=== PATIENT | female | born 1950 | race Caucasian/White ===

== ENCOUNTER → 2018-03-03 | Outpatient (CLI) | payer OTHER | LOC: BMCIMAGING 14:40 | PROVIDERS: ATTEND Obstetrics & Gynecology | DX: Z13.820 Encounter for screening for osteoporosis (principal); M81.0 Age-related osteoporosis without current pathological fracture; K51.90 Ulcerative colitis, unspecified, without complications; Z78.0 Asymptomatic menopausal state ==

== ENCOUNTER → 2018-03-05 | Outpatient (CLI) | payer OTHER | LOC: FIMAGING 15:18 → MERGE 15:20 | PROVIDERS: ATTEND Obstetrics & Gynecology | DX: Z12.31 Encounter for screening mammogram for malignant neoplasm of breast (principal) ==

== ENCOUNTER 2018-05-02 05:47 | Inpatient (IN) | payer OTHER ==
--- NOTE | 2018-04-30 10:49 | GHP ---
[f rep st] PREOP HISTORY AND PHYSICAL DATE OF ADMISSION: 05/02/2018 Adriana is a 67-year-old female with a history of hepatitis C status post treatment, ulcerative colitis with ileostomy, who presents with a symptomatic parastomal hernia. This was further characterized on CT scan as a moderate-sized parastomal hernia containing nonobstructed small loops of bowel. She re ports feeling a bulge in her ostomy for several months. She is tolerating a regular diet and having normal bowel function. PAST MEDICAL HISTORY: Includes hepatitis C status post treatment, ulcerative colitis status post sub total colectomy, asthma, hypertension, mitral and tricuspid regurgitation. PAST SURGICAL HISTORY: Subtotal colectomy with ileostomy for ulcerative colitis. MEDICATIONS: Includes holistic supplements. ALLERGIES: No known drug allergies. FAMILY HISTORY: Includes abnormal heart rhythm and myocardial infarction. SOCIAL HISTORY: The patient does not drink alcohol. She does not use tobacco or caffeine. 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 REVIEW OF SYSTEMS: A 10-point review of systems is negative aside from that in the HPI. PHYSICAL EXAMINATION: GENERAL: A well-appearing, well-groomed 67-year-old female in no acute distre ss. HEENT: Normocephalic, atraumatic. CHEST: Clear to auscultation bilaterally. CARDIAC: Regula r rate and rhythm without murmurs. ABDOMEN: Soft, nontender and nondistended. Ileostomy is pink, i ntact with adequate profile and non-reducible bulge. SKIN: Warm and dry. PSYCH: Normal mood and a ffect. IMPRESSION: This is a 67-year-old female with a parastomal hernia around her ileostomy. PLAN: Plan is to proceed with an open parastomal hernia repair with possible use of mesh. Risks and options have been discussed and include, but are not limited to bleeding, infection, nerve injury, b owel injury, recurrence, damage to surrounding structures and other problems, and she requests to pro ceed. /[id number]/MODL
[2018-05-02] MEDS ORDERED: cefOXitin SODIUM 2 GM in NS 100 ML IV ONE (06:00)
[2018-05-02] MEDS ORDERED: LR 1,000 ML IV ONE (06:06)
[2018-05-02] MEDS ORDERED: BUPIVACAINE 0.5% 30 ML SDV ONE (06:31)
--- NOTE | 2018-05-02 07:05 | PDHPUP ---
History & Physical Update H&P update statement: This history and physical update is based on an assessment of the patient which was completed after admission or registration (within 24 hours), but prior to the surgery/procedure. H&P update: H&P reviewed & patient examined, no change in patient's condition since H&P completed
--- NOTE | 2018-05-02 07:08 | PDANEPAE ---
ANE History of Present Illness parastoma hernia ANE Past Medical History - Cardiovascular History Hx Hypertension: No Hx Arrhythmias: No Hx Chest Pain: No Hx Coronary Artery / Peripheral Vascular Disease: No Hx CHF / Valvular Disease: Yes Hx Palpitations: No Cardiovascular History Comment: mild MR, mild-mod TR on last echo (05/15/17) cardiac clearance note from [facility]- dr. 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 poor gastric absorbtion - Other Health History Other Health History: sinus congestion. mild glaucoma - Chronic Pain History Chronic Pain: Yes (lower back,sciatica) - Surgical History Prior Surgeries: egd 04/2018. none in last 5 yrs ANE Review of Systems Review of systems is: negative Review of Systems: - Exercise capacity Exercise capacity: >=4 METS METS (RN): 4 METS ANE Patient History - Allergies Allergies/Adverse Reactions: acetaminophen [From Vicodin] Allergy (Verified 05/02/18 06:09) Vomiting aspirin Allergy (Verified 05/02/18 06:09) Liver Problems hydrocodone [From Vicodin] Allergy (Verified 05/02/18 06:09) Vomiting ibuprofen [From Motrin IB] Allergy (Verified 05/02/18 06:09) Liver Problems tramadol Allergy (Verified 05/02/18 06:09) Vomiting food allergies Allergy (Uncoded 05/02/18 06:09) Other-Enter Comments - Home Medications Home medications: home medication list seen and reviewed Home Medications: Latanoprost 0.005% [Xalatan 0.005% (*)] 1 drops EACHEYE HS 04/21/18 [Last Taken 04/25/18] Multivitamins [Multivitamin (*)] 1 each PO DAILY 04/21/18 [Last Taken 04/25/18] RX: Herbals/Supplements -Info Only 1 ea PO DAILY 04/21/18 [Last Taken 04/25/18] - NPO status NPO Status: no food or drink >8 hours NPO Since - Liquids (Date): 05/01/18 NPO Since - Liquids (Time): 23:59 NPO Since - Solids (Date): 05/01/18 NPO Since - Solids (Time): 19:00 - Anes Hx Anes Hx: no prior problems - Smoking Hx Smoking Status: Never smoked - Family Anes Hx Family Hx Anesthesia Complications: none ANE Labs/Vital Signs - Vital Signs Vital Signs: reviewed preoperatively; see RN documention for details Blood Pressure: 124/97 Heart Rate: 82 Respiratory Rate: 16 O2 Sat (%): 93 Height: 152.4 cm Weight: 70.307 kg ANE Physical Exam - Airway Neck exam: FROM Mallampati Score: Class 2 Mouth exam: normal dental/mouth exam - Pulmonary Pulmonary: no respiratory distress, clear to auscultation - Cardiovascular Cardiovascular: regular rate and rhythym - ASA Status ASA Status: III ANE Anesthesia Plan Anesthesia Plan: general endotracheal anesthesia Regional Anesthesia: single shot NB, TAP block
[2018-05-02] MEDS ORDERED: fentaNYL 100 MCG/2 ML INJ ONE ×2 (07:14→08:45)
[2018-05-02] MEDS ORDERED: PROPOFOL/EMULSION 500 MG/50 ML BOTTLE IV ONE ×3 (07:14→08:51)
[2018-05-02] MEDS ORDERED: PROPOFOL 200 MG/20 ML VIAL ONE (07:14)
[2018-05-02] MEDS ORDERED: ROCURONIUM 50 MG/5 ML VIAL ONE ×2 (07:21→08:36)
[2018-05-02] MEDS ORDERED: ePHEDrine SULFATE 25 MG/5 ML SYR ONE (07:50)
[2018-05-02] MEDS ORDERED: PHENYLEPHRINE HCL 100 MCG/ML SYR ONE (07:51)
[2018-05-02] MEDS ORDERED: DEXAMETHASONE 4 MG/ML VIAL ONE (07:52)
[2018-05-02] MEDS ORDERED: ONDANSETRON 4 MG/2 ML VIAL ONE (07:53)
[2018-05-02] MEDS ORDERED: ROPIVACAINE HCL 150 MG/30 ML INJ ONE (08:22)
[2018-05-02] MEDS ORDERED: ALBUTEROL 3 ML DEYVIAL IH PRN (08:29)
[2018-05-02] MEDS ORDERED: LABETALOL HCL 5 MG/ML 20 ML MDV IVP PRN (08:29)
[2018-05-02] MEDS ORDERED: MEPERIDINE 25 MG/0.5 ML AMP IVP PRN (08:29)
[2018-05-02] MEDS ORDERED: LR 500 ML IV PRN (08:29)
[2018-05-02] MEDS ORDERED: fentaNYL 100 MCG/2 ML INJ IVP PRN (08:29)
[2018-05-02] MEDS ORDERED: ONDANSETRON 4 MG/2 ML VIAL IVP PRN ×2 (08:29→09:31)
[2018-05-02] MEDS ORDERED: PROMETHAZINE HCL 25 MG/ML INJ IVP PRN (08:29)
[2018-05-02] MEDS ORDERED: PHENYLEPHRINE HCL 100 MCG/ML SYR IVP PRN (08:29)
[2018-05-02] MEDS ORDERED: DEXAMETHASONE 4 MG/ML VIAL IVP PRN (08:29)
[2018-05-02] MEDS ORDERED: NALOXONE HCL 0.4 MG/ML INJ IVP PRN (08:29)
[2018-05-02] MEDS ORDERED: METOCLOPRAMIDE 10 MG/2 ML VIAL IVP PRN (08:29)
[2018-05-02] MEDS ORDERED: SUGAMMADEX SODIUM 200 MG/2 ML VIAL IVP ONE (08:59)
[2018-05-02] MEDS ORDERED: THROMBIN (BOVINE) 5,000 UNIT VIAL TP ONE (09:00)
[2018-05-02] MEDS ORDERED: HYDROmorphONE/DILAUDID 1 MG/ML INJ IVP PRN (09:29)
[2018-05-02] MEDS ORDERED: ONDANSETRON DISINTEGRATING 4 MG TAB PO PRN (09:31)
--- NOTE | 2018-05-02 09:35 | POSTOPPROG ---
Post Op Note Date of Operation: 05/02/18 Surgeon: Robert Felton Shift Boss: Kathy Anesthesiologist: Jos Anesthesia: GET(General Endotracheal) Pre-op Diagnosis: Parastomal hernia Post-op Diagnosis: same Indication: same Procedure: Open repair of parastomal hernia, CLAIRE Findings: Multiple adhesions, loops of bowel within hernia sac Inf/Abcess present in the surg proc area at time of surgery?: No Depth: Organ Space EBL: 50-100 Bowel Protocol: N/A Clean Closure Performed: N/A Drains: Devon Ca
[2018-05-02] MEDS ORDERED: NS 1,000 ML IV SCH (09:45)
[2018-05-02] MEDS ORDERED: HYDROmorphONE/DILAUDID 2 MG/ML INJ ONE (10:33)
[2018-05-02] MEDS: HYDROmorphONE/DILAUDID 2 MG/ML INJ IVP PRN ×2 (10:37→10:48)
--- NOTE | 2018-05-02 11:06 | POSTANESTH ---
Post Anesthetic Evaluation Cardiovascular Status: Normal, Stable Respiratory Status: Normal, Stable Level of Consciousness/Mental Status: Can Participate in Eval Pain Control: Adequate, Prn Tx Ordered Nausea/Vomiting Control: Adequate, Prn Tx Ordered Complications Possibly Related to Anesthesia: None Noted
[2018-05-02] MEDS: HYDROmorphONE/DILAUDID 2 MG TAB PO PRN ×2 (20:52→21:28)
[2018-05-03 06:12] LABS: PLATELET COUNT 172 10^3/uL (150-400)
--- NOTE | 2018-05-03 09:19 | SOAPPROG ---
SOAP Progress Note Assessment/Plan: Assessment: WOUND OK/ MINIMAL TACHO OUT/ AFEBRILE/ OSTOMY OK/ + OSTOMY OUTPUT Plan:ADVANCE DIET/ HOME IN AM 05/03/18 09:17 Objective: Vital Signs Temp Pulse Resp BP Pulse Ox 36.7 C 69 1 L 131/80 H 92 05/03/18 07:27 05/03/18 07:27 05/03/18 07:27 05/03/18 07:27 05/03/18 07:27 Laboratory Results 05/03/18 06:08 05/02/18 05/03/18 05/04/18 05:59 05:59 05:59 Intake Total 1750 Output Total 1130 Balance 620 ICD10 Worksheet Patient Problems: Problems Problem Status Onset INCARCERATED PARASTOMAL HERNIA Acute
--- NOTE | 2018-05-03 09:42 | PDMN ---
Medical Necessity Medical necessity: Pt meets IP criteria per [employer]SYCHOLOG[employer] & MCG S-1305; est los >2 mn s/p open parastomal hernia repair (cpt 34137) with 7/10 pain; admit for further monitoring, advancement of diet as tolerated & pain management; hx ulcerative colitis w/ileostomy; per order & H&P 05/02/18
[2018-05-03] MEDS: HYDROmorphONE/DILAUDID 2 MG TAB PO PRN ×2 (10:24→16:38)
--- NOTE | 2018-05-03 12:22 | ASMTCMCOM ---
CM Note CM Note Notes: Pt is s/p a planned hernia repair with ostomy. Anticipate d/c with no CM needs when medically cleared, likely tomorrow. Date Signed: 05/03/2018 12:22 PM Electronically Signed By:ALTHEA Banegas
--- NOTE | 2018-05-03 20:50 | GOP ---
[f rep st] OPERATIVE REPORT DATE OF OPERATION: 05/02/2018 SURGEON: Robert Felton MD ALARM MECHANIC: Nicky Marquez, nurse practitioner. ANESTHESIOLOGIST: Dr. Lambert. PREOPERATIVE DIAGNOSIS: Incarcerated peristomal hernia. POSTOPERATIVE DIAGNOSIS: Incarcerated peristomal hernia. PROCEDURE PERFORMED: Open repair of incarcerated peristomal hernia. FINDINGS: Patient was found to have a 5 cm defect in the peristomal hernia with incarcerated small b owel. The stoma itself appeared to be quite viable and intact. ESTIMATED BLOOD LOSS: Blood loss from the procedure was less than 25 cc. DESCRIPTION OF PROCEDURE: The patient was taken to the operating room where she received satisfactor y general endotracheal anesthesia by Dr. Lambert. She was placed in a supine position, prepped and draped in the usual sterile fashion. A circular incision was made around the stoma somewhat distant from the stoma. Dissection was carried carefully down through the subcutaneous tissue down to the fa scia. The fascial edges of the hernia defect were carefully dissected free and exposed circumferenti ally around the entire stoma. The stoma was identified by the Wood catheter balloon in the loop of the terminal ileum. The remaining small bowel was carefully dissected free from its attachments to t he stoma and from the attachments in the hernia defect until they could be reduced back into the abdo men. The defect was then closed with interrupted #1 PDS [id number] sutures making a snug closur e around the residual ileostomy stoma. A second layer was used for #1 PDS suture to imbricate a seco nd layer over the initial closure in a running manner. The wound was then infiltrated with 0.5% Yamil sky. Subcu was closed with 3-0 Vicryl. The skin was closed with 3-0 Monocryl subcuticular stitch. A 15 round silicone TACHO drain had been brought out through a separate stab incision, secured to skin with a nylon suture. The wound was dressed with Dermabond and then eventually an appliance was appli ed. She tolerated the procedure well. COMPLICATIONS: There were no complications. /[id number]/MODL
[2018-05-04] MEDS: HYDROmorphONE/DILAUDID 2 MG TAB PO PRN (03:14)
--- NOTE | 2018-05-04 08:21 | SOAPPROG ---
SOAP Progress Note Assessment/Plan: Assessment: WOUND OK/ MINIMAL TACHO OUT/ AFEBRILE/ OSTOMY OK/ + OSTOMY OUTPUT Plan:ADVANCE DIET/ HOME IN AM 05/03/18 09:17 05/04/18 08:20 afebrile/ vs ok/ still some pain/ ostomy working/ eating ok/ home tomorrow Objective: Vital Signs Temp Pulse Resp BP Pulse Ox 36.8 C 76 18 146/80 H 92 05/04/18 03:26 05/04/18 03:26 05/04/18 03:26 05/04/18 03:26 05/04/18 03:26 Laboratory Results 05/03/18 06:08 05/03/18 05/04/18 05/05/18 05:59 05:59 05:59 Intake Total 1750 500 Output Total 1130 1205 Balance 119 -485 ICD10 Worksheet Patient Problems: Problems Problem Status Onset INCARCERATED PARASTOMAL HERNIA Acute
--- NOTE | 2018-05-05 08:28 | SOAPPROG ---
SOAP Progress Note Assessment/Plan: Assessment/Plan: 67 Y F s/p parastomal hernia repair. POD#3. Doing well. Pain controlled. Advance diet. Patient comfortable with ostomy care. D/c to home--will be with a friend. Patient declining home nursing. F/u Saturday for likely drain removal. S: ready to go home. O: alert, nad ncat, mmm ctab rrr abd soft, ostomy intact, hernia repair intact. 05/05/18 08:24 Objective: Vital Signs Temp Pulse Resp BP Pulse Ox 36.6 C 77 16 148/102 H 90 L 05/05/18 07:17 05/05/18 07:17 05/05/18 07:17 05/05/18 07:17 05/05/18 07:17 Laboratory Results 05/03/18 06:08 05/04/18 05/05/18 05/06/18 05:59 05:59 05:59 Intake Total 500 250 Output Total 3022 692 Balance -915 -731 ICD10 Worksheet Patient Problems: Problems Problem Status Onset INCARCERATED PARASTOMAL HERNIA Acute
--- NOTE | 2018-05-05 09:29 | ASMTDCNOTE ---
Case Management Discharge Discharge Order Complete? Answers: Yes Patient to Obtain Answers: Independently Medications Transportation Arranged Answers: Family/Friends Transport will Pick (Date 05/05/2018 12:00 AM & Time) Discharge Comments Notes: CM met with patient. Patient is being discharging independently today. Patient is comfortable with this plan. Family is transporting. No CM needs at this time. Date Signed: 05/05/2018 09:28 AM Electronically Signed By:Lyn Ramos
--- NOTE | 2018-05-05 09:32 | ASMTLACE ---
EARLENE Length of stay for Answers: 3 days current admission Acuity / Level of Answers: Yes Care: Did the patient have an inpatient admission? Comorbidities - select Answers: Congestive heart failure all that apply Opioid dependence / Chronic pain Other Notes: Hep C; HTN # of Emergency department Answers: 0 visits in the last 6 months Social determinants Answers: Mental health diagnosis (anxiety, depression, pers onality disorders, etc.) Score: 16 Date Signed: 05/05/2018 09:31 AM Electronically Signed By:Lyn Ramos
--- NOTE | 2018-05-05 09:58 | ASDISCHSUM ---
Discharge Information Plan Status:Home with No Needs Medically Cleared to Leave:05/05/2018 Discharge Date:05/05/2018 CM D/C Disposition:Home, Routine, Self-Care ADT D/C Disposition:Home, Routine, Self-Care Projected Discharge Date:05/05/2018 Transportation at D/C:Family Discharge Delay Reason: Follow-Up Date:05/05/2018 Discharge Slot: Final Diagnosis:parastomal hernia Placement Information Patient Contact Information Contact Name:LANCE Relationship:Kacey Address: Work Phone: City: [facility] Phone: State/[employer] Code: Email: Financial Information Financial Class:Medicare Primary Plan Desc:MEDICARE INPATIENT Primary Plan Number:[id number] Secondary Plan Desc:PH[employer]IC[employer] TRAIL Secondary Plan Number:[id number] Assessment Information LACE LACE Length of stay for Answers: 3 days current admission Acuity / Level of Answers: Yes Care: Did the patient have an inpatient admission? Comorbidities - select Answers: Congestive heart failure all that apply Opioid dependence / Chronic pain Other Notes: Hep C; HTN # of Emergency department Answers: 0 visits in the last 6 months Social determinants Answers: Mental health diagnosis (anxiety, depression, pers onality disorders, etc.) Score: 16 Date Signed: 05/05/2018 09:31 AM Electronically Signed By:Lyn Ramos [facility] CM Progress Note CM Note CM Note Notes: Pt is s/p a planned hernia repair with ostomy. Anticipate d/c with no CM needs when medically cleared, likely tomorrow. Date Signed: 05/03/2018 12:22 PM Electronically Signed By:ALTHEA Banegas Case Management Discharge Plan Note Case Management Discharge Discharge Order Complete? Answers: Yes Patient to Obtain Answers: Independently Medications Transportation Arranged Answers: Family/Friends Transport will Pick (Date 05/05/2018 12:00 AM & Time) Discharge Comments Notes: CM met with patient. Patient is being discharging independently today. Patient is comfortable with this plan. Family is transporting. No CM needs at this time. 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
[2018-05-05 11:53] VITALS: BP 158/98
== END 2018-05-05 12:30 | disposition home or self-care (01) | DRG 354 ==
LOC: F3N 05:47 → OBSVTOIN 09:28 → F3E 10:22
PROVIDERS: ADMIT Surgery; ATTEND Surgery
PROC: 0WQF0ZZ Repair Abdominal Wall, Open Approach (ICD-10-PCS; principal; 2018-05-02 07:15)
DX: K43.5 Parastomal hernia without obstruction or gangrene (principal); K51.90 Ulcerative colitis, unspecified, without complications; Z93.2 Ileostomy status; K74.60 Unspecified cirrhosis of liver; I34.0 Nonrheumatic mitral (valve) insufficiency; I36.1 Nonrheumatic tricuspid (valve) insufficiency; J45.909 Unspecified asthma, uncomplicated; K21.9 Gastro-esophageal reflux disease without esophagitis; H40.9 Unspecified glaucoma; G89.29 Other chronic pain
CPT/HCPCS: J0694; J1100; J1170; J2370; J2405; J2704; J2795; J3010

== ENCOUNTER 2018-06-03 10:14 | Inpatient (IN) | payer OTHER ==
--- NOTE | 2018-06-02 10:48 | GHP ---
[f rep st] PREOP HISTORY AND PHYSICAL DATE OF ADMISSION: 06/03/2018 CHIEF COMPLAINT: Ileostomy retraction. HISTORY OF PRESENT ILLNESS: Adriana is a 67-year-old female status post parastomal hernia repair on 05/02/2018. Since surgery, she has struggled with fitting her ileostomy appliance over her ileostomy. She reports that it continues to leak, and is causing itching and pain. She also has a superficial dehiscence in the inferior aspect of her incision. She has been undergoing routine local wound care. She is tolerating regular diet. She denies fever and chills. PAST MEDICAL HISTORY: Asthma, hepatitis C, hypertension, mitral regurgitation, tricuspid regurgitation, ulcerative colitis. PAST SURGICAL HISTORY: Ileostomy 30 years ago, parastomal hernia repair. MEDICATIONS: Supplements. ALLERGIES: No known drug allergies. FAMILY HISTORY: Myocardial infarction in her maternal grandmother. SOCIAL HISTORY: This patient is a nonsmoker. She does not drink alcohol or caffeine. REVIEW OF SYSTEMS: Ten-point review of systems is negative, aside from what is in the HPI. PHYSICAL EXAM: GENERAL: This is a well-appearing and well-dressed 67-year-old female in no acute distress. HEENT: Normocephalic, atraumatic. No gross hearing deficits. Mucous membranes moist, PERRLA. CARDIAC: Regular rate and rhythm, no clicks, murmurs or rubs. CHEST: Clear to auscultation bilaterally, no wheezes, rhonchi or rales. ABDOMEN: Soft, nontender, nondistended. Ileostomy appears retracted with multiple granulomas surrounding it. There is local skin irritation present around the ileostomy. Her incision appears intact , with exception of the inferior-most aspect that is superficially dehisced. There is no surrounding erythema, warmth or induration. No drainage or malodor. IMPRESSION AND PLAN: This is a 67-year-old female with a history of ulcerative colitis who has had an ileostomy for the last 30 years. Most recently, she underwent parastomal hernia repair approximately 1 month ago. Since then, she has had multiple issues with her ileostomy leaking. She has to change her appliance multiple times per day. We have discussed all risks and options. Risks of surgery include, but are not limited to infection, bleeding, damage to surrounding structures, including bowel and nerves, heart attack, and . Patient understands and wishes to proceed. We will proceed with open revision of ileostomy. /[id number]/MODL MTDD
[~2018-06-03 10:14] MED LIST: BUPIVACAINE 0.5% 30 ML SDV ONE; cefOXitin SODIUM 2 GM in NS 100 ML IV ONE
[2018-06-03] MEDS ORDERED: LR 1,000 ML IV ONE (10:22)
[2018-06-03 11:07] LABS: PLATELET COUNT 224 10^3/uL (150-400)
[2018-06-03] MEDS ORDERED: PROPOFOL/EMULSION 500 MG/50 ML BOTTLE IV ONE ×3 (11:07→12:49)
[2018-06-03] MEDS ORDERED: fentaNYL 100 MCG/2 ML INJ ONE ×3 (11:07→14:35)
[2018-06-03] MEDS ORDERED: PROPOFOL 200 MG/20 ML VIAL ONE (11:07)
--- NOTE | 2018-06-03 11:10 | PDANEPAE ---
ANE History of Present Illness stoma leak ANE Past Medical History - Cardiovascular History Hx Hypertension: No Hx Arrhythmias: No Hx Chest Pain: No Hx Coronary Artery / Peripheral Vascular Disease: No Hx CHF / Valvular Disease: Yes Hx Palpitations: No Cardiovascular History Comment: mild MR, mild-mod TR on last echo (05/15/17) cardiac clearance note from [facility]- dr. rose 04/22/18 - Pulmonary History Hx COPD: No Hx Asthma/Reactive Airway Disease: Yes Hx Recent Upper Respiratory Infection: No Hx Oxygen in Use at Home: No Hx Sleep Apnea: No Sleep Apnea Screening Result - Last Documented: Negative Pulmonary History Comment: asthma - Neurologic History Hx Cerebrovascular Accident: No Hx Seizures: No Hx Dementia: No - Endocrine History Hx Diabetes: No - Renal History Hx Renal Disorders: No - Liver History Hx Hepatic Disorders: Yes Hepatic History Comment: cirrhosis with portal HTN - Neurological & Psychiatric Hx Hx Neurological and Psychiatric Disorders: Yes Neurological / Psychiatric History Comment: anxiety - Cancer History Hx Cancer: No - Congenital Disorder History Hx Congenital Disorders: No - GI History Hx Gastrointestinal Disorders: Yes Gastrointestinal History Comment: acid reflux,ulcerative collitis. poor gastric absorbtion - Other Health History Other Health History: sinus congestion. mild glaucoma - Chronic Pain History Chronic Pain: Yes (lower back,sciatica) - Surgical History Prior Surgeries: 05/02/18 open parastomal hernia repair with Jose Francisco. egd 2018. none in last 5 yrs ANE Review of Systems Review of systems is: negative Review of Systems: - Exercise capacity Exercise capacity: >=4 METS METS (RN): 4 METS ANE Patient History - Allergies Allergies/Adverse Reactions: acetaminophen [From Vicodin] Allergy (Verified 05/30/18 16:23) causes issues with liver tramadol Allergy (Verified 05/30/18 16:23) makes me feel funky food allergies Allergy (Uncoded 05/30/18 16:23) Other-Enter Comments - Home Medications Home medications: home medication list seen and reviewed Home Medications: Herbals/Supplements -Info Only 1 ea PO DAILY 04/21/18 [Last Taken 1 Week Ago ~] Latanoprost 0.005% [Xalatan 0.005% (*)] 1 drops EACHEYE HS 04/21/18 [Last Taken 1 Day Ago ~06/02/18] Multivitamins [Multivitamin (*)] 1 each PO DAILY 04/21/18 [Last Taken 1 Week Ago ~05/27/18] - NPO status NPO Status: no food or drink >8 hours NPO Since - Liquids (Date): 06/03/18 NPO Since - Liquids (Time): 08:00 NPO Since - Solids (Date): 06/02/18 NPO Since - Solids (Time): 13:30 - Anes Hx Anes Hx: no prior problems - Smoking Hx Smoking Status: Never smoked - Family Anes Hx Family Hx Anesthesia Complications: none ANE Labs/Vital Signs - Labs Result Diagrams: 06/03/18 10:56 - Vital Signs Vital Signs: reviewed preoperatively; see RN documention for details Blood Pressure: 137/73 Heart Rate: 74 Respiratory Rate: 19 O2 Sat (%): 98 Height: 152.4 cm Weight: 70.307 kg ANE Physical Exam - Airway Neck exam: FROM Mallampati Score: Class 2 Mouth exam: normal dental/mouth exam - Pulmonary Pulmonary: no respiratory distress - Cardiovascular Cardiovascular: regular rate and rhythym - ASA Status ASA Status: III ANE Anesthesia Plan Anesthesia Plan: general endotracheal anesthesia Regional Anesthesia: single shot NB, TAP block
[2018-06-03] MEDS ORDERED: ROCURONIUM 50 MG/5 ML VIAL ONE ×2 (11:11→12:36)
[2018-06-03] MEDS ORDERED: DEXAMETHASONE 4 MG/ML VIAL ONE (12:36)
[2018-06-03] MEDS ORDERED: ONDANSETRON 4 MG/2 ML VIAL ONE (12:36)
[2018-06-03] MEDS ORDERED: ROPIVACAINE HCL 150 MG/30 ML INJ ONE (13:10)
[2018-06-03] MEDS ORDERED: METOCLOPRAMIDE 10 MG/2 ML VIAL IVP PRN (13:14)
[2018-06-03] MEDS ORDERED: PHENYLEPHRINE HCL 100 MCG/ML SYR IVP PRN (13:14)
[2018-06-03] MEDS ORDERED: NALOXONE HCL 0.4 MG/ML INJ IVP PRN (13:14)
[2018-06-03] MEDS ORDERED: DEXAMETHASONE 4 MG/ML VIAL IVP PRN (13:14)
[2018-06-03] MEDS ORDERED: ONDANSETRON 4 MG/2 ML VIAL IVP PRN ×2 (13:14→13:36)
[2018-06-03] MEDS ORDERED: PROMETHAZINE HCL 25 MG/ML INJ IVP PRN (13:14)
[2018-06-03] MEDS ORDERED: fentaNYL 100 MCG/2 ML INJ IVP PRN (13:14)
[2018-06-03] MEDS ORDERED: HYDROmorphONE/DILAUDID 1 MG/ML INJ IVP PRN ×2 (13:14→13:36)
[2018-06-03] MEDS ORDERED: LABETALOL HCL 5 MG/ML 20 ML MDV IVP PRN (13:14)
[2018-06-03] MEDS ORDERED: MEPERIDINE 25 MG/0.5 ML AMP IVP PRN (13:14)
[2018-06-03] MEDS ORDERED: ALBUTEROL 3 ML DEYVIAL IH PRN (13:14)
[2018-06-03] MEDS ORDERED: HYDROmorphONE/DILAUDID 2 MG TAB PO PRN (13:37)
[2018-06-03] MEDS ORDERED: HYDROmorphONE/DILAUDID 1 MG/ML INJ ONE (14:35)
[2018-06-03] MEDS: NS 1,000 ML IV SCH (15:40)
[2018-06-03] MEDS: cefOXitin SODIUM 1 GM in NS 50 ML IV SCH ×2 (17:50→23:24)
--- NOTE | 2018-06-03 19:11 | SOAPPROG ---
SOAP Progress Note Assessment/Plan: Assessment/Plan: 67 Y F s/p ileostomy revision. POD#0. Doing well. Wounds intact. Minimal pain. Clears. Continue routine post op care. Dispo: pending. Likely . 06/03/18 19:10 Objective: Vital Signs Temp Pulse Resp BP Pulse Ox 36.5 C 64 15 152/84 H 99 06/03/18 17:25 06/03/18 17:25 06/03/18 17:25 06/03/18 17:25 06/03/18 17:25 Laboratory Results 06/03/18 10:56 06/02/18 06/03/18 06/04/18 05:59 05:59 05:59 Intake Total 1600 Output Total 700 Balance 900 ICD10 Worksheet Patient Problems: Problems Problem Status Onset INCARCERATED PARASTOMAL HERNIA Acute
--- NOTE | 2018-06-03 19:17 | POSTOPPROG ---
Post Op Note Date of Operation: 06/03/18 Surgeon: Robert Felton Care Advocate: Lacy Garza Anesthesiologist: TACHO Lambert Anesthesia: GET(General Endotracheal) Pre-op Diagnosis: retracted ileostomy after parastomal hernia repair Post-op Diagnosis: same Procedure: ileostomy revision c sbr Findings: ileostomy readily brought to surface, good protrusion, viable bowel Inf/Abcess present in the surg proc area at time of surgery?: No EBL: Minimal Complications: none Bowel Protocol: N/A Clean Closure Performed: N/A Specimen(s): to path
[2018-06-03] MEDS: LATANOPROST 0.005% 2.5 ML OPHT DROPS EACHEYE SCH (20:56)
--- NOTE | 2018-06-03 23:54 | GOP ---
[f rep st] OPERATIVE REPORT DATE OF OPERATION: 06/03/2018 SURGEON: Robert Felton MD LEASE PURCHASE DRIVER: ANILA Low. ANESTHESIOLOGIST: Dr. Lambert. PREOPERATIVE DIAGNOSIS: Chronic ileostomy with retraction and stricture. POSTOPERATIVE DIAGNOSIS: Chronic ileostomy with retraction and stricture. PROCEDURE PERFORMED: Ileostomy revision. FINDINGS: VIABLE ADEQUATE LENGTH OF TERMINAL ILEUM FOR NEW STOMA CREATION DESCRIPTION OF PROCEDURE: The patient was taken to the operating room where she received a satisfactory general endotracheal anesthesia by Dr. Lambert. She was placed in supine position prepped and draped in the usual sterile fashion. A circular incision was made around the ostomy at the skin level. Dissection carried down through the subcutaneous tissue with electrocautery. This was quite difficult because of the recent incarcerated hernia surgery with a marked amount of fat necrosis and inflammation in the subcutaneous tissue in the mesentery around the ileostomy limb. The dissection extended down to the fascia which was then opened and the entire ileostomy segment could be freed up. It was brought up out of the abdomen and extended for as much as necessary. The distal portion had been involved with the skin, and the stricture was excised using the Harmonic Scalpel. The new ileostomy limb was secured to the fascia with interrupted 3-0 Vicryl sutures, then brought up through the skin service. The subcu had been approximated with 3-0 Vicryl. It should be noted the fascia was reapproximated also with #1 PDS [id number] suture. The ileostomy was then turned into a 2 cm circle by everting the distal portion of the ileostomy. It was secured to the skin and to the ileum and into the ileal mucosa with interrupted 3-0 Vicryl sutures around the circumference of the ileostomy. Hemostasis was assured. The wound was irrigated. The ileostomy was then dressed with an ileostomy appliance, and the wounds were covered with derma dewitt. She tolerated the procedure well. She was taken to the recovery room in good condition. The wound was infiltrated with 0.5% Marcaine. Blood loss was negligible. There were no complications. /[id number]/MODL MTDD
[2018-06-04] MEDS: cefOXitin SODIUM 1 GM in NS 50 ML IV SCH ×3 (05:52→18:02)
--- NOTE | 2018-06-04 09:12 | SOAPPROG ---
SOAP Progress Note Assessment/Plan: Assessment/Plan: 67 Y F s/p ileostomy revision. POD#1. Stoma is dark. Hopefully just superficial, but some concern for ischemia. D/w' ed Dr. Felton and wound care who will both see patient today. Continue clears. Continue pain control. VTE ppx tomorrow. Ambulate today. Dispo: patient motivated for d/c tomorrow. Pending. S: minimal pain. wants to walk. had some sugar free jello. O: alert, nad ctab rrr abd soft ostomy dark, dark scan sanguinous drainage 06/04/18 09:10 Objective: Vital Signs Temp Pulse Resp BP Pulse Ox 36.8 C 66 16 110/57 L 95 06/04/18 07:19 06/04/18 07:19 06/04/18 07:19 06/04/18 07:19 06/04/18 07:19 Laboratory Results 06/04/18 05:20 06/04/18 05:20 06/03/18 06/04/18 06/05/18 05:59 05:59 05:59 Intake Total 1900 Output Total 1025 Balance 875 ICD10 Worksheet Patient Problems: Problems Problem Status Onset INCARCERATED PARASTOMAL HERNIA Acute
--- NOTE | 2018-06-04 11:38 | ASMTCMCOM ---
CM Note CM Note Notes: Pt had ileostomy revision, pt reports she may need another surgery this hospitalization. Pt was just at [facility] and d/c 05/02 independent. Pt has routine wound care at [facility] outpatient and wound care ordered to consult this hospitalization. Pt resides alone, reports she will have a friend who is an RN be able to stay with her at d/c intermittently. Pt reports she may need HHC and it is too early now to know. Pt has never had skilled home care and resides in [place]. No therapies ordered. CM to follow. D/c plan of care: Independent vs home health RN Date Signed: 06/04/2018 11:38 AM Electronically Signed By:ALTHEA Bowen
--- NOTE | 2018-06-04 15:05 | WOCRNPDOC ---
PAVEL Advanced Assessment Note - Ileostomy Assessment, Advanced Right Abdomen Ileostomy Ileostomy Appliance Intact: No Ileostomy Appliance Currently in Use: Two Piece Flat, 2 1/4, Cut to Fit Stoma Color: Purple Stoma Turgor: Taught Stoma Shape: Round Stoma Height: Protruding Ileostomy Effluent: Serosangenous (transitional) Ileostomy Size - Head-to-Toe Length X Width X Depth (cm): 38 Ileostomy Details: End Ileostomy Comment/Treatment Details: Ostomy revision yesterday. Pouch in place is 2 1/4 convatec cut to fit. This is leaking from the bottom. There is a fresh 2cm surgical wound at 12 oclock that is approximately 0.4 cm deep. There is also a small dime sized very shallow wound at 7 oclock about 4 cm away from stoma that has no drainage. Stoma is mushroomed and although the opening measures to 38 mm the stoma "top" is closer to 44 mm. Patient is tearful and has her friend Lidia in the room. Patient was very concerned about the appliance being too small, about the wound at 7 oclock dehiscing and about the possiblity that she may have to go back to surgery. A two piece flat sensura flex appliance 2 3/4 was chosen and placed which patient liked. A pea sized amount of brava paste applied to 9 oclock as there was a slight divit in the skin there. Hemlock catalogue with sensura jose cruz 2 piece wafer and pouch demarkated for ordering was supplied along with day one teaching packet. [place] BANSAL in room.
--- NOTE | 2018-06-04 16:40 | PDMN ---
Medical Necessity Medical necessity: [facility] IP only surgery; cpt 29863 Ileostomy Revision
[2018-06-04] MEDS: LATANOPROST 0.005% 2.5 ML OPHT DROPS EACHEYE SCH (21:20)
[2018-06-04] MEDS: KETOROLAC 15 MG/1 ML SDV IVP PRN (23:29)
[2018-06-04] MEDS: MELATONIN 3 MG TAB PO SCH (23:29)
[2018-06-05] MEDS ORDERED: ENOXAPARIN 40 MG/0.4 ML SYR SC SCH (09:00)
--- NOTE | 2018-06-05 10:25 | SOAPPROG ---
SOAP Progress Note Assessment/Plan: Assessment/plan: 67 Y F s/p ileostomy revision. POD#2 Stoma continues to be dark. If not improved by tomorrow, will plan on taking her to surgery for further revision. NPO at midnight. Continue pain control. VTE ppx: hold for possible surgery tomorrow. Continue to ambulate. Dispo: continue inpt status. S: Tolerating orals. Having bowel function. O: Alert Afebrile RRR No increased WOB Abdomen: soft, diffusely tender throughout abdomen. Ostomy appears dark. Dark serosang drainage in appliance. 06/05/18 10:11 Objective: Vital Signs Temp Pulse Resp BP Pulse Ox 37.0 C 80 16 129/78 H 88 L 06/05/18 08:00 06/05/18 08:00 06/05/18 08:00 06/05/18 08:00 06/05/18 08:00 Laboratory Results 06/04/18 05:20 06/04/18 05:20 06/04/18 06/05/18 06/06/18 05:59 05:59 05:59 Intake Total 1900 Output Total 1028 2250 250 Balance 875 -2250 -250 ICD10 Worksheet Patient Problems: Problems Problem Status Onset INCARCERATED PARASTOMAL HERNIA Acute
[2018-06-05] MEDS: MELATONIN 3 MG TAB PO SCH (21:53)
[2018-06-05] MEDS: LATANOPROST 0.005% 2.5 ML OPHT DROPS EACHEYE SCH (21:53)
--- NOTE | 2018-06-05 22:33 | SOAPPROG ---
MAGNUS Progress Note Assessment/Plan: Assessment: stoma improved and much pinker tonite/ check in am/ hopefully could avoid revision Plan:possible stoma revision in am 06/05/18 22:32 Objective: Vital Signs Temp Pulse Resp BP Pulse Ox 36.6 C 77 16 129/69 H 94 06/05/18 19:36 06/05/18 19:36 06/05/18 19:36 06/05/18 19:36 06/05/18 19:36 Laboratory Results 06/04/18 05:20 06/04/18 05:20 06/04/18 06/05/18 06/06/18 05:59 05:59 05:59 Intake Total 1900 500 Output Total 1025 2250 450 Balance 875 -2250 50 ICD10 Worksheet Patient Problems: Problems Problem Status Onset INCARCERATED PARASTOMAL HERNIA Acute
[2018-06-06] MEDS ORDERED: cefOXitin SODIUM 2 GM in NS 100 ML IV ONE (14:00)
[2018-06-06] MEDS: LATANOPROST 0.005% 2.5 ML OPHT DROPS EACHEYE SCH (22:59)
[2018-06-06] MEDS: MELATONIN 3 MG TAB PO SCH (22:59)
[2018-06-07] MEDS: NS 1,000 ML IV SCH (13:00)
--- NOTE | 2018-06-07 13:17 | SOAPPROG ---
MAGNUS Progress Note Assessment/Plan: Assessment: stoma improved and much pinker tonite/ check in am/ hopefully could avoid revision Plan:possible stoma revision in am 06/05/18 22:32 06/07/18 13:16 AFEBRILE/COMFORTABLE/VITAL SIGNS STABLE OSTOMY JUVENTINO STILL LOOKS DUSKY TO ME ALTHOUGH IT IS FUNCTIONING WELL PLAN IS TO PROCEED WITH THE OSTOMY REVISION TODAY/RISKS AND OPTIONS FULLY DISCUSSED AND SHE WISHED TO PROCEED HEENT NONICTERIC/CHEST CLEAR/COR REGULAR RHYTHM/ABDOMEN SOFT WITH RIGHT LOWER QUADRANT ILEOSTOMY Objective: Vital Signs Temp Pulse Resp BP Pulse Ox 37.1 C 74 16 149/79 H 93 06/07/18 08:00 06/07/18 08:00 06/07/18 08:00 06/07/18 08:00 06/07/18 08:00 Laboratory Results 06/04/18 05:20 06/04/18 05:20 06/06/18 06/07/18 06/08/18 05:59 05:59 05:59 Intake Total 800 Output Total 850 1475 Balance -50 -1473 ICD10 Worksheet Patient Problems: Problems Problem Status Onset INCARCERATED PARASTOMAL HERNIA Acute
[2018-06-07] MEDS ORDERED: NS 1,000 ML IV SCH (13:30)
[2018-06-07] MEDS ORDERED: cefOXitin SODIUM 2 GM in NS 100 ML IV ONE (14:00)
--- NOTE | 2018-06-07 16:31 | ASMTCMCOM ---
CM Note CM Note Notes: Pt will have ostomy revision, unclear if needs home health RN. States will have a friend who is a nurse stay with her intermittantly. Pt is normally independent, no therapies ordered. DC Plan: Independent vs RN Date Signed: 06/07/2018 04:30 PM Electronically Signed By:Khushbu Singletary RN
--- NOTE | 2018-06-07 18:57 | PDANEPAE ---
ANE History of Present Illness revision of stoma ANE Past Medical History - Cardiovascular History Hx Hypertension: No Hx Arrhythmias: No Hx Chest Pain: No Hx Coronary Artery / Peripheral Vascular Disease: No Hx CHF / Valvular Disease: Yes Hx Palpitations: No Cardiovascular History Comment: mild MR, mild-mod TR on last echo (05/15/17) cardiac clearance note from [facility]- dr. 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 poor gastric absorbtion - Other Health History Other Health History: sinus congestion. mild glaucoma - Chronic Pain History Chronic Pain: Yes (lower back,sciatica) - Surgical History Prior Surgeries: 05/02/18 open parastomal hernia repair with Felton. egd 2018. none in last 5 yrs ANE Review of Systems Review of Systems: - Exercise capacity METS (RN): 4 METS ANE Patient History - Allergies Allergies/Adverse Reactions: acetaminophen [From Vicodin] Allergy (Verified 05/30/18 16:23) causes issues with liver tramadol Allergy (Verified 05/30/18 16:23) makes me feel funky adhesive from arthur ostomy appl Allergy (Uncoded 06/07/18 13:02) food allergies Allergy (Uncoded 05/30/18 16:23) Other-Enter Comments - Home Medications Home Medications: Herbals/Supplements -Info Only 1 ea PO DAILY 04/21/18 [Last Taken 1 Week Ago ~] Latanoprost 0.005% [Xalatan 0.005% (*)] 1 drops EACHEYE HS 04/21/18 [Last Taken 1 Day Ago ~06/02/18] Multivitamins [Multivitamin (*)] 1 each PO DAILY 04/21/18 [Last Taken 1 Week Ago ~05/27/18] - NPO status NPO Since - Liquids (Date): 06/07/18 NPO Since - Liquids (Time): 06:00 NPO Since - Solids (Date): 06/06/18 NPO Since - Solids (Time): 20:00 - Smoking Hx Smoking Status: Never smoked - Alcohol Use Alcohol Use: None - Family Anes Hx Family Anes Hx: none Family Hx Anesthesia Complications: none ANE Labs/Vital Signs - Labs Result Diagrams: 06/04/18 05:20 06/04/18 05:20 - Vital Signs Blood Pressure: 134/84 Heart Rate: 78 Respiratory Rate: 16 O2 Sat (%): 92 Height: 152.4 cm Weight: 70.307 kg ANE Physical Exam - Airway Neck exam: FROM Mallampati Score: Class 1 - Pulmonary Pulmonary: clear to auscultation - Cardiovascular Cardiovascular: regular rate and rhythym - ASA Status ASA Status: III ANE Anesthesia Plan Anesthesia Plan: general endotracheal anesthesia Total IV Anesthesia: Yes
[2018-06-07] MEDS ORDERED: fentaNYL 100 MCG/2 ML INJ ONE ×3 (19:10→20:45)
[2018-06-07] MEDS ORDERED: ROCURONIUM 50 MG/5 ML VIAL ONE (19:10)
[2018-06-07] MEDS ORDERED: DEXAMETHASONE 4 MG/ML VIAL ONE (19:10)
[2018-06-07] MEDS ORDERED: PROPOFOL 200 MG/20 ML VIAL ONE ×4 (19:10→19:45)
[2018-06-07] MEDS ORDERED: BUPIVACAINE 0.5% 30 ML SDV ONE (19:16)
[2018-06-07] MEDS ORDERED: ONDANSETRON 4 MG/2 ML VIAL ONE (20:12)
[2018-06-07] MEDS ORDERED: SUGAMMADEX SODIUM 200 MG/2 ML VIAL IVP ONE (20:16)
--- NOTE | 2018-06-07 20:32 | POSTOPPROG ---
Post Op Note Date of Operation: 06/07/18 Surgeon: Robert Felton Anesthesiologist: xena Anesthesia: GET(General Endotracheal) Pre-op Diagnosis: ileostomy ischemia Post-op Diagnosis: same Indication: possible ileostomy necrosis Procedure: ileostomy revision Findings: marginally viable distal 2 cm of ileostomy Inf/Abcess present in the surg proc area at time of surgery?: Yes Depth: Deep Incisional (Fascial) EBL: Minimal Complications: 0 Drains: Devon Ac Specimen(s): stoma
[2018-06-07] MEDS ORDERED: HYDROmorphONE/DILAUDID 1 MG/ML INJ IVP PRN (20:33)
[2018-06-07] MEDS ORDERED: NALOXONE HCL 0.4 MG/ML INJ IVP PRN (20:33)
--- NOTE | 2018-06-07 20:40 | POSTANESTH ---
Post Anesthetic Evaluation Cardiovascular Status: Normal, Stable Respiratory Status: Similar to Pre-op Cond. Level of Consciousness/Mental Status: Can Participate in Eval Pain Control: Adequate, Prn Tx Ordered Nausea/Vomiting Control: Adequate, Prn Tx Ordered Complications Possibly Related to Anesthesia: None Noted
[2018-06-07] MEDS: fentaNYL 100 MCG/2 ML INJ IVP PRN ×2 (20:46→21:11)
[2018-06-07] MEDS: LATANOPROST 0.005% 2.5 ML OPHT DROPS EACHEYE SCH (22:34)
[2018-06-07] MEDS: MELATONIN 3 MG TAB PO SCH (22:35)
[2018-06-08] MEDS: NS 1,000 ML IV SCH (04:03)
[2018-06-08] MEDS: KETOROLAC 15 MG/1 ML SDV IVP PRN ×2 (04:06→23:21)
--- NOTE | 2018-06-08 12:12 | SOAPPROG ---
MAGNUS Progress Note Assessment/Plan: Assessment: stoma improved and much pinker tonite/ check in am/ hopefully could avoid revision Plan:possible stoma revision in am 06/05/18 22:32 06/07/18 13:16 AFEBRILE/COMFORTABLE/VITAL SIGNS STABLE OSTOMY JUVENTINO STILL LOOKS DUSKY TO ME ALTHOUGH IT IS FUNCTIONING WELL PLAN IS TO PROCEED WITH THE OSTOMY REVISION TODAY/RISKS AND OPTIONS FULLY DISCUSSED AND SHE WISHED TO PROCEED HEENT NONICTERIC/CHEST CLEAR/COR REGULAR RHYTHM/ABDOMEN SOFT WITH RIGHT LOWER QUADRANT ILEOSTOMY 06/08/18 12:11 afebrile/ vs stable/ eating ok/ stoma pink, minimal drainage/ home in am Objective: Vital Signs Temp Pulse Resp BP Pulse Ox 36.3 C 65 16 115/73 96 06/08/18 07:40 06/08/18 07:40 06/08/18 07:40 06/08/18 07:40 06/08/18 07:40 Laboratory Results 06/04/18 05:20 06/04/18 05:20 06/07/18 06/08/18 06/09/18 05:59 05:59 05:59 Intake Total 972 Output Total 1475 1355 15 Balance -1475 -383 -15 ICD10 Worksheet Patient Problems: Problems Problem Status Onset INCARCERATED PARASTOMAL HERNIA Acute
--- NOTE | 2018-06-08 17:59 | GOP ---
[f rep st] OPERATIVE REPORT DATE OF OPERATION: 06/07/2018 SURGEON: Robert Felton MD GLASS BULB SILVERER: There was no bindery assistant. ANESTHESIOLOGIST: JESSICA. PREOPERATIVE DIAGNOSIS: Ileostomy ischemia. POSTOPERATIVE DIAGNOSIS: Ileostomy ischemia. PROCEDURE PERFORMED: Revision of ileostomy. FINDINGS: The patient was found to have a distal 1-2 cm of the ileostomy that appeared to be ischemic. The proximal bowel had good bleeding and no evidence of ischemia. There was a fair amount of old bloody fluid around the ileostomy site. DESCRIPTION OF PROCEDURE: The patient was taken to the operating room where she received a satisfactory general endotracheal anesthesia by Dr. LOPEZ. She was placed in the supine position and prepped and draped in usual sterile fashion. A circular incision was made around the ostomy stoma. It was elevated up. The distal portion of the stoma was excised. The proximal bowel appeared to be quite viable. It was secured to the fascia with interrupted 3-0 Vicryl sutures. A Edwina ileostomy nipple was then created by suturing the skin to the body of the ileostomy and then to the everted mucosa of the Edwina nipple. That was done circumferentially. She tolerated the procedure well. The wound had been irrigated and drained. A 15 round silicone drain was brought through a separate stab incision and placed in the previous surgical cavity. A portion of the incision was closed with a running 4-0 Prolene mattress suture. The wound was covered with Dermabond and then dressed with an ileostomy bag. She tolerated the procedure well. Was taken to the recovery room in good condition. No complications. Blood loss negligible. /[id number]/MODL MTDD
[2018-06-08] MEDS: LATANOPROST 0.005% 2.5 ML OPHT DROPS EACHEYE SCH (23:16)
[2018-06-08] MEDS: MELATONIN 3 MG TAB PO SCH (23:16)
[2018-06-09 08:36] VITALS: BP 114/81
--- NOTE | 2018-06-09 09:08 | SOAPPROG ---
SOAP Progress Note Assessment/Plan: Assessment/plan: 67 Y F s/p ileostomy revision POD #7 Now s/p additional ileostomy revision for ischemic ostomy POD #2 Ostomy is pink with adequate profile today. Dispo: home today. Follow up on for drain removal. S: Tolerating regular diet and having appropriate ostomy output. Very happy with results of most recent surgery. Minimal pain. Plans on taking ibuprofen when she gets home. O: Alert Afebrile RRR No increased WOB Abdomen: soft, diffusely tender throughout abdomen, ostomy pink with adequate profile. Soft brown stool in appliance. 06/09/18 09:06 Objective: Vital Signs Temp Pulse Resp BP Pulse Ox 36.7 C 64 16 114/81 H 92 06/09/18 08:00 06/09/18 08:00 06/09/18 08:00 06/09/18 08:00 06/09/18 08:00 Laboratory Results 06/04/18 05:20 06/04/18 05:20 06/08/18 06/09/18 06/10/18 05:59 05:59 05:59 Intake Total 972 0 Output Total 3695 1035 640 Balance -383 1035 -640 ICD10 Worksheet Patient Problems: Problems Problem Status Onset INCARCERATED PARASTOMAL HERNIA Acute
--- NOTE | 2018-06-09 09:55 | ASMTLACE ---
EARLENE Length of stay for Answers: 4-6 days current admission Acuity / Level of Answers: Yes Care: Did the patient have an inpatient admission? Comorbidities - select Answers: Congestive heart failure all that apply Opioid dependence / Chronic pain Other Notes: Cirrhosis; Ulcerative colitis # of Emergency department Answers: 0 visits in the last 6 months Social determinants Answers: Mental health diagnosis (anxiety, depression, pers onality disorders, etc.) Score: 17 Date Signed: 06/09/2018 09:54 AM Electronically Signed By:Maria Grimes RN
--- NOTE | 2018-06-09 10:28 | ASMTDCNOTE ---
Case Management Discharge Discharge Order Complete? Answers: Yes Patient to Obtain Answers: Independently Medications Transportation Arranged Answers: Family/Friends Discharge Comments Notes: Patient discharged home. She is not interested in HH RN right now but says she will call Dr Felton' office if she changes her mind. She has friends to support her at home. Date Signed: 06/09/2018 10:27 AM Electronically Signed By:Maria Grimes RN
== END 2018-06-09 13:36 | disposition home or self-care (01) | DRG 331 ==
LOC: INTOOBSV 10:14 → F1N 10:14 → F3E 10:31 → OBSVTOIN 06-04 16:30
PROVIDERS: ADMIT Surgery; ATTEND Surgery
PROC: 0D1B0Z4 Bypass Ileum to Cutaneous, Open Approach (ICD-10-PCS; principal; 2018-06-03 11:45)
PROC: 0DBB0ZZ Excision of Ileum, Open Approach (ICD-10-PCS; principal; 2018-06-03 11:45)
PROC: 0D1B0Z4 Bypass Ileum to Cutaneous, Open Approach (ICD-10-PCS; 2018-06-07)
PROC: 0DBB0ZZ Excision of Ileum, Open Approach (ICD-10-PCS; 2018-06-07)
DX: K94.13 Enterostomy malfunction (principal); J45.909 Unspecified asthma, uncomplicated; I34.0 Nonrheumatic mitral (valve) insufficiency; I36.1 Nonrheumatic tricuspid (valve) insufficiency; B19.20 Unspecified viral hepatitis C without hepatic coma; K21.9 Gastro-esophageal reflux disease without esophagitis; F41.9 Anxiety disorder, unspecified
CPT/HCPCS: J0694; J1100; J1170; J1650; J1885; J2405; J2704; J2795; J3010